=== PATIENT | female | born 1985 | race Caucasian/White ===

== ENCOUNTER 2021-11-15 01:42 | Inpatient (IN) ==
[2021-11-15] MEDS ORDERED: Lactated Ringers 1000 ml BAG 1,000 ML IV ONE ×2 (02:52→06:56)
[2021-11-15] MEDS ORDERED: Buffered Lidocaine 1% SYRIN 1 ml INTRADERM ONE (02:52)
[2021-11-15] MEDS ORDERED: Lactated Ringers 1000 ml BAG 1,000 ML IV SCH ×4 (03:00→13:00)
[2021-11-15 03:12] LABS: ABS Eosinophils 0.1 10^3/ul (0-0.6); ABS Lymphocytes 1.4 10^3/ul (1.0-4.8); ABS Monocytes 0.7 10^3/ul (0-0.8); ABS Neutrophils 8.2 10^3/ul (1.5-7.7); Eosinophil % 0.8 %; Hematocrit 40 % (35-47); Hemoglobin 13.5 g/dL (12.0-16.0); Lymphocyte % 13.3 %; Mean Corpuscular HGB Conc 33 g/dL (31-36); Mean Corpuscular Hemoglobin 31 pg (27-31); Mean Corpuscular Volume 91 fL (80-97); Mean Platelet Volume 9.6 fL (7.4-10.4); Nucleated Red Blood Cells % 0.1; Platelet Count 179 10^3/uL (150-450); Red Blood Count 4.44 10^6 /uL (3.70-4.87); Red Cell Distribution Width 13 % (10-15); White Blood Count 10.4 10^3/uL (3.5-10.8)
[2021-11-15 03:30] LABS: Urine Benzodiazepine Screen None Detected (None Detect); Urine Cannabinoids Screen None Detected (None Detect); Urine Opiates Screen None Detected (None Detect)
[2021-11-15] MEDS ORDERED: OBEPIDURAL (200 ML) 200 ML EPIDURAL ONE (06:10)
[2021-11-15] MEDS ORDERED: Lidocaine 1.5% EPI 1:200,000 30 ML SDV ONE (06:11)
[2021-11-15] MEDS ORDERED: Sodium Citrate/Citric Acid LIQ 15 ML UDC PO PRN (06:56)
[2021-11-15] MEDS ORDERED: Lactated Ringers 1000 ml BAG 500 ML IV PRN ×2 (06:56)
[2021-11-15] MEDS ORDERED: Phenylephrine 40 mcg/mL 10mL (400mcg) SYRINGE IV PUSH PRN ×2 (06:56)
[2021-11-15] MEDS ORDERED: OBEPIDURAL (200 ML) 200 ML EPIDURAL SCH ×2 (07:00→08:27)
[2021-11-15 08:19] LABS: Urine Appearance Clear; Urine Bilirubin Negative (Negative); Urine Blood Negative (Negative); Urine Color Yellow; Urine Glucose Negative (Negative); Urine Ketones 1+ (15mg/dL) (Negative)
[2021-11-15 08:20] LABS: Urine Nitrite Negative (Negative); Urine Protein Negative (Negative); Urine Urobilinogen 0.2 (Negative) (Negative)
[2021-11-15] MEDS ORDERED: Oxytocin in LR 20,000 MILLI.UNIT/1,000 ML BAG IV SCH ×2 (08:30→12:30)
[2021-11-15] MEDS ORDERED: Witch Hazel PAD JAR TOPICAL PRN (12:15)
[2021-11-15] MEDS ORDERED: Dibucaine 1% OINT 28.35 GM TUBE PR PRN (12:15)
[2021-11-16 06:27] LABS: ABS Eosinophils 0.2 10^3/ul (0-0.6); ABS Lymphocytes 1.6 10^3/ul (1.0-4.8); ABS Monocytes 0.6 10^3/ul (0-0.8); ABS Neutrophils 6.6 10^3/ul (1.5-7.7); Eosinophil % 1.9 %; Hematocrit 37 % (35-47); Hemoglobin 12.5 g/dL (12.0-16.0); Lymphocyte % 17.6 %; Mean Corpuscular HGB Conc 34 g/dL (31-36); Mean Corpuscular Hemoglobin 31 pg (27-31); Mean Corpuscular Volume 91 fL (80-97); Mean Platelet Volume 9.5 fL (7.4-10.4); Nucleated Red Blood Cells % 0.1; Platelet Count 178 10^3/uL (150-450); Red Blood Count 4.07 10^6 /uL (3.70-4.87); Red Cell Distribution Width 13 % (10-15)
[2021-11-17 08:32] VITALS: BP 108/68
== END 2021-11-17 14:12 | disposition home or self-care (01) | DRG 807 ==
LOC: MCHOBOUT 01:42 → MCHOB 02:46
PROVIDERS: ADMIT Midwife; ATTEND Midwife